=== PATIENT | female | born 1945 | race Caucasian/White ===

== ENCOUNTER 2016-07-07 12:08 | Emergency (ER) | payer MEDICARE ==
[2016-07-07] MEDS ORDERED: SODIUM CHLORIDE 0.9% 1,000 ML ONE (13:47)
[2016-07-07 13:50] LABS: BASO # 0.1 K/mm3 (0.0-0.2); EOS # 0.3 (0.0-0.5); HEMATOCRIT 30.8 % (37.0-47.0); HEMOGLOBIN 9.6 gm/l (12.0-16.0); IMM NEUT% 0.3 % (0-1); LYMPH # 0.9 (1.0-4.8); LYMPH % 13.4 % (15-45); MEAN CELL VOLUME 88.8 fl (81.0-99.0); MEAN CORPUSCULAR HEMOGLOBIN 27.7 pg (27.0-31.0); MEAN CORPUSCULAR HGB CONC 31.2 g/dl (33.0-37.0); MEAN PLATELET VOLUME 8.6 fl (7.4-10.4); MONO # 0.6 (0.0-0.8); MONO % 8.3 % (4-12); PLATELET COUNT 426 K/mm3 (130-400); RED CELL DISTRIBUTION WIDTH 15.9 % (11.5-14.5)
[2016-07-07 14:10] LABS: ALB/GLOB RATIO 1.7 (>1.0); ALBUMIN 3.5 gm/dL (3.5-5.7); CALCIUM 7.8 mg/dL (8.6-10.3)
[2016-07-07 14:18] LABS: SPECIFIC GRAVITY 1.015 (1.001-1.030); URINE BILIRUBIN NEGATIVE (NEGATIVE); URINE BLOOD NEGATIVE (NEGATIVE); URINE GLUCOSE (UA) NEGATIVE (NEGATIVE); URINE LEUKOCYTE ESTERASE NEGATIVE (NEGATIVE); URINE NITRITE NEGATIVE (NEGATIVE); URINE PROTEIN NEGATIVE (NEGATIVE); URINE UROBILINOGEN NORMAL (0-1 mg/dl)
[2016-07-07 14:19] LABS: URINE APPEARANCE CLEAR; URINE COLOR YELLOW
--- NOTE | 2016-07-07 15:29 | CT ---
CT ABDOMEN AND PELVIS WITHOUT CONTRAST HISTORY: Left lower quadrant pain with history of gastrointestinal stromal tumor. TECHNIQUE: No intravenous contrast administered; contiguous axial images were acquired from the lung bases to the ischial tuberosities. Oral contrast was not administered. COMPARISON:None. FINDINGS: LUNG BASES: Minor fibrotic changes with mild emphysematous change and minor bronchial wall thickening. No airspace consolidation or pleural effusion. LIVER: Stable low-attenuation lesions, no new mass effect. SPLEEN: New minor perisplenic fluid. PANCREAS: No focal mass effect. ADRENAL GLANDS: Fatty rich adenoma of the left adrenal gland, 1.5 cm in size, stable. KIDNEYS: No renal calculi. No collecting system dilatation. Extrarenal pelvis on the left. GALLBLADDER: Present. BOWEL: Left-sided mid abdominal mesenteric mass lesion coarse calcifications, poorly separable from multiple adjacent loops of bowel. Currently this measures approximately 11.7 x 11.9 x 7.9 cm, compared to 3.8 x 9.3 x 6.1 cm on prior study when similar dimensions are assessment. However there is no gross small bowel dilatation. Colon is largely decompressed. There is colonic diverticulosis without features of diverticulitis. Separate mass lesion is now identified along lower aspects of mesentery, measuring 6.8 x 7.3 x 6.8 cm in size, not clearly identified on prior imaging. APPENDIX: Not identified. PELVIC ORGANS: Status post hysterectomy, no adnexal mass effect. FREE FLUID: Minor perisplenic fluid as above. Inguinal regions: Fatty left inguinal hernia. ABDOMINOPELVIC LYMPH NODES: No abnormally enlarged lymph nodes identified. ABDOMINAL AORTA: Normal caliber. OSSEOUS STRUCTURES: Findings of lower lumbar facet degeneration. No destructive lesions. IMPRESSION: 1. Interval enlargement of left mid abdominal mass lesion increase in maximal dimension from 9.3 to 11.7 cm in size, in keeping with history of gastrointestinal stromal tumor. New solid mesenteric mass at the left lower quadrant measuring 7.3 cm in size, possible satellite lesion. 2. Lesions are poorly separable from adjacent loops of small bowel, but there is no bowel dilatation to suggest gross obstruction. 3. Minor perisplenic free fluid, malignant ascites is possible. 4. Stable low-attenuation lesions of the liver. 5. Initiation of fatty left adrenal adenoma. 6. Bronchitic and emphysematous change of the lungs. 7. Post hysterectomy change. 8. Changes of lumbar spondylosis. Findings discussed with Dr. Boyd of the Emergency Medicine clinical service on 07/07/2016 at 1521 hours.
== END 2016-07-07 16:09 | disposition home or self-care (01) ==
LOC: ED 12:08
DX: K63.9 Disease of intestine, unspecified (principal); R10.32 Left lower quadrant pain; E11.9 Type 2 diabetes mellitus without complications; E03.9 Hypothyroidism, unspecified; E78.5 Hyperlipidemia, unspecified; I10 Essential (primary) hypertension; Z87.891 Personal history of nicotine dependence; Z79.899 Other long term (current) drug therapy; Z79.82 Long term (current) use of aspirin; Z88.1 Allergy status to other antibiotic agents; Z88.0 Allergy status to penicillin; Z88.8 Allergy status to other drugs, medicaments and biological substances; Z91.041 Radiographic dye allergy status
CPT/HCPCS: 83690; 85025; 80053; 81003; 74176; 99284 ×2; 96360; J7030